=== PATIENT | female | born 1935 | race Caucasian/White ===

== ENCOUNTER → 2016-08-28 | Day surgery (SDC) | payer MEDICARE, BC ==
[~2016-08-28] MED LIST: Bacitracin Oint 1 GM U/D Packet ONE; Bupivacaine 0.5% 50 ML MDV ONE; Diphtheria,Pertussis(Acell),Tetanus Vaccine 0.5 ML SDV IM ONE; Levofloxacin/Dextrose 5%-Water 500 MG in Premix Bag 1 BAG IV ONE; Lidocaine 1% with EPINEPHrine 1:100,000 50 ML MDV ONE; Midazolam 1 MG/ML 2 ML SDV ONE; Morphine 2 MG/ML Syringe ONE; Propofol 200 MG/20 ML SDV ONE; Sodium Chloride 0.9% 1,000 ML IV SCH; fentaNYL 100 MCG/2 ML SDV ONE
[2016-08-28 21:59] VITALS: BP 150/79
--- NOTE | 2016-08-28 22:06 | EDM.PDOC ---
ED HPI GENERAL MEDICAL PROBLEM - General Chief Complaint: Laceration Stated Complaint: CUT LEG ON DOCK Time Seen by Provider: 08/28/16 22:06 Source of Information: Reports: Patient, EMS Notes Reviewed History Limitations: Reports: No Limitations - History of Present Illness INITIAL COMMENTS - FREE TEXT/NARRATIVE: pt was getting off the pontoon tonight and missed stepped and she caught her leg on the dock. She ended up with a 15 cm laceration on the front of the left leg. This was deep into the soft tissue. Onset: Today Duration: Hour(s): Location: Reports: Lower Extremity, Left Associated Symptoms: Reports: No Other Symptoms - Related Data Allergies Allergy/AdvReac Type Severity Reaction Status Date / Time Penicillins Allergy Hives Verified 08/28/16 22:05 Home Meds: Home Meds Aspirin 1 tab PO DAILY 08/28/16 [History] Clopidogrel [Plavix] 1 tab PO DAILY 08/28/16 [History] Famotidine 1 tab PO DAILY 08/28/16 [History] Gabapentin [Neurontin] 1 tab PO BID 08/28/16 [History] atorvaSTATin [Lipitor] 1 tab PO DAILY 08/28/16 [History] metFORMIN [Glucophage] 1 tab PO BID 08/28/16 [History] ED ROS GENERAL - Review of Systems Review Of Systems: See Below Constitutional: Reports: No Symptoms HEENT: Reports: No Symptoms Respiratory: Reports: No Symptoms Cardiovascular: Reports: No Symptoms Endocrine: Reports: No Symptoms GI/Abdominal: Reports: No Symptoms : Reports: No Symptoms Musculoskeletal: Reports: Other ( pt has a 15 cm laceration on the front of the left leg. ) ED EXAM, SKIN/RASH Exam: See Below Text/Narrative:: pt fell getting off the pontoon and ended up with a 15 cm laceration on the front of the left leg. . A xray was obtained which did not reveal a fracture. Exam Limited By: No Limitations General Appearance: Alert, Anxious, Mild Distress Ears: Normal TMs Nose: Normal Inspection Throat/Mouth: Normal Inspection Head: Atraumatic Neck: Normal Inspection Respiratory/Chest: No Respiratory Distress Cardiovascular: Regular Rate, Rhythm GI/Abdominal: Soft, Non-Tender (Female) Exam: Deferred Rectal (Female) Exam: Deferred Back Exam: Normal Inspection Extremities: Other ( Pt has a 15 cm laceration to the front of the mid portion of the lower leg. This is deep into the sub q. ) Neurological: Alert, Oriented, Normal Cognition Course - Vital Signs Last Recorded V/S: Last Vital Signs Temp 34.2 C L 08/28/16 22:15 Pulse 74 08/28/16 22:15 Resp 18 08/28/16 22:15 BP 150/79 H 08/28/16 22:15 Pulse Ox 94 L 08/28/16 22:15 - Orders/Labs/Meds Orders: Active Orders 24 hr Category Date Time Status Vaccines to be Administered [RC] PER UNIT ROUTINE Care 08/28/16 21:53 Active Tibia Fibula Lt [CR] Stat Exams 08/28/16 21:51 Taken Sodium Chloride 0.9% [Normal Saline] 1,000 ml Med 08/28/16 22:15 Active IV ASDIRECTED Medication Orders Sodium Chloride (Normal Saline) 1,000 mls @ 200 mls/hr IV ASDIRECTED CHUCKY Last Admin: 08/28/16 22:23 Dose: 200 mls/hr Labs: Laboratory Tests 08/28/16 08/28/16 Range/Units 22:16 22:16 WBC 15.2 H (4.5-11.0) K/uL RBC 4.45 (3.30-5.50) M/uL Hgb 12.7 (12.0-15.0) g/dL Hct 39.2 (36.0-48.0) % MCV 88 (80-98) fL MCH 29 (27-31) pg MCHC 32 (32-36) % Plt Count 355 (150-400) K/uL Neut % (Auto) 75 H (36-66) % Lymph % (Auto) 14 L (24-44) % Coles % (Auto) 10 H (2-6) % Eos % (Auto) 1 L (2-4) % Baso % (Auto) 0 (0-1) % Sodium 140 (140-148) mmol/L Potassium 3.7 (3.6-5.2) mmol/L Chloride 104 (100-108) mmol/L Carbon Dioxide 27 (21-32) mmol/L Anion Gap 8.7 (5.0-14.0) mmol/L BUN 23 H (7-18) mg/dL Creatinine 1.1 H (0.6-1.0) mg/dL Est Cr Clr Drug Dosing 38.19 mL/min Estimated GFR (MDRD) 48 L (>60) Glucose 180 H (74-106) mg/dL Calcium 8.0 L (8.5-10.1) mg/dL Meds: Medications Generic Name Dose Route Start Last Admin Trade Name Omaira PRN Reason Stop Dose Admin Sodium Chloride 1,000 mls @ 200 mls/hr 08/28/16 22:15 08/28/16 22:23 Normal Saline IV 200 mls/hr ASDIRECTED CHUCKY Administration Discontinued Medications Generic Name Dose Route Start Last Admin Trade Name Omaira PRN Reason Stop Dose Admin Bacitracin Confirm 08/28/16 23:32 Bacitracin Oint 1 Gm Administered 08/28/16 23:33 Dose 3 dose .ROUTE .STK-MED ONE Bupivacaine HCl Confirm 08/28/16 22:59 08/28/16 23:22 Marcaine 0.5% Administered 08/28/16 23:00 20 ml Dose Administration 50 ml .ROUTE .STK-MED ONE Diphtheria/Tetanus/Acell Pertussis 0.5 ml 08/28/16 21:52 08/28/16 22:22 Adacel IM 08/28/16 21:53 0.5 ml .ONCE ONE Administration Fentanyl Confirm 08/28/16 22:57 Sublimaze Administered 08/28/16 22:58 Dose 100 mcg .ROUTE .STK-MED ONE Levofloxacin/Dextrose 500 mg/ 100 mls @ 100 mls/hr 08/28/16 22:04 08/28/16 22 :26 Premix IV 08/28/16 23:03 100 mls/hr ONETIME ONE Administration Lidocaine/Epinephrine Confirm 08/28/16 22:59 08/28/16 23:23 Xylocaine 1% With Epinephrine 1:100,000 Administered 08/28/16 23:00 20 ml Dose Administration 50 ml .ROUTE .STK-MED ONE Midazolam HCl Confirm 08/28/16 22:57 Versed 1 Mg/Ml Administered 08/28/16 22:58 Dose 2 mg .ROUTE .STK-MED ONE Propofol Confirm 08/28/16 22:57 Diprivan 20 Ml Administered 08/28/16 22:58 Dose 200 mg .ROUTE .STK-MED ONE - Re-Assessments/Exams Free Text/Narrative Re-Assessment/Exam: 08/28/16 22:37 xray of the leg showed no fracture. 08/28/16 22:38 Dr Alejandro was consulted and he will take her to the OR for repair. Departure - Departure Time of Disposition: 23:42 Disposition: Admitted As Inpatient 67 Condition: fair Clinical Impression: Laceration of left leg - Discharge Information - My Orders Last 24 Hours: My Active Orders 08/28/16 21:51 Tibia Fibula Lt [CR] Stat 08/28/16 21:53 Vaccines to be Administered [RC] PER UNIT ROUTINE 08/28/16 22:15 Sodium Chloride 0.9% [Normal Saline] 1,000 ml IV ASDIRECTED - Assessment/Plan Last 24 Hours: My Active Orders 08/28/16 21:51 Tibia Fibula Lt [CR] Stat 08/28/16 21:53 Vaccines to be Administered [RC] PER UNIT ROUTINE 08/28/16 22:15 Sodium Chloride 0.9% [Normal Saline] 1,000 ml IV ASDIRECTED
--- NOTE | 2016-08-29 02:57 | CONS ---
DATE OF SERVICE: 08/28/2016 REFERRING PHYSICIAN: CONSULTING PHYSICIAN: Joseph Alejandro MD REASON FOR CONSULTATION: Laceration left leg. HISTORY OF PRESENT ILLNESS: This is an 81-year-old female, who was getting up the pontoon and caught her leg on the dock. The patient has a laceration deep to the bone of her left leg. This is obviously a new problem for her. She has pain, which is 4 to 5/10. PAST MEDICAL HISTORY: The patient states that she is not a diabetic, but she is on metformin. PAST SURGICAL HISTORY: Hysterectomy. REVIEW OF SYSTEMS: GENERAL: She is appropriate for her condition. HEENT: No symptoms. RESPIRATORY: She can walk greater than 2 blocks without trouble breathing. CARDIOVASCULAR: No history of myocardial infarction. ENDOCRINE: No symptoms. GI: No symptoms. GENITOURINARY: No symptoms. MUSCULOSKELETAL: As above. The remainder review of systems is reviewed and is negative. PHYSICAL EXAMINATION: VITAL SIGNS: Temperature erroneously reported at 93.5, blood pressure 170/79, pulse 74, respirations 18, and 94% on room air. HEENT: Pupils are equal. NECK: Supple. LUNGS: Clear. CARDIOVASCULAR: Regular rhythm and rate. ABDOMEN: Bowel sounds positive. EXTREMITIES: Dorsalis pedis pulse noted and a 15-cm laceration full thickness left leg. LABORATORY RESULTS: Show white blood cell count of 15.2. IMAGING: I did review the tib-fib x-ray without the official results, but no gross abnormalities were noted. ASSESSMENT AND PLAN: Laceration, left leg, complex. The patient will be taken to the operating room for repair of this. We discussed risks, benefits, alternatives, and limitations, including, but not limited to infection, bleeding, and requirement for reoperation and other risks not listed here. The patient understands these risks and wishes to proceed. Joseph Alejandro MD /[id number]
--- NOTE | 2016-08-30 07:36 | OR ---
DATE OF PROCEDURE: 08/28/2016 PROCEDURES PERFORMED: 1. Repair of left lower extremity laceration, 15.3 cm, complex (20455). 2. Additional length (43515). 3. Additional length (54104). FINDINGS: 1. Small amount of necrotic tissue consistent with traumatic laceration. 2. Suture ligation of small musculocutaneous blood vessels. COMPLICATIONS: None. 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 ANESTHESIA: MAC/local. INDICATIONS: An 81-year-old female, who fell off a dock onto to a pontoon resulting in a significant laceration of her leg. Risks benefits, alternatives, and limitations, including, but not limited to infection, bleeding, requirement for reoperation, chronic wounds, and other risks that were not explained and the patient wishes to proceed. PROCEDURE IN DETAIL: The patient was placed supine position. The left leg was prepped and draped. A wound exploration was commenced. There were 2 small arterial vessels that were completely transected for a total 4 ends. These were suture ligated using 3-0 Vicryl. The wound was then anesthetized with approximately 40 mL of lidocaine mixed with Marcaine. The debridement of a small amount of ischemic tissue and some foreign material was also performed. These were not sent for pathology. The wound was then closed in 3 layers of 0 Vicryl and 3-0 Vicryl, and the skin was subsequently closed with jia and 3-0 Prolene after thorough repeated irrigation. Dressings were applied. The patient tolerated the procedure well. Joseph Alejandro MD /[id number]
--- NOTE | 2016-08-30 11:49 | CR ---
Advanced medial compartment joint space loss. Hypertrophic change. Foci of air within the anterior s oft tissues of the tibia could reflect injury. Correlate clinically.
== END ==
LOC: JP.ED 21:50 → JP.SDS 22:45
PROVIDERS: ATTEND Surgery
DX: S81.812A Laceration without foreign body, left lower leg, initial encounter (principal); W19.XXXA Unspecified fall, initial encounter; Y93.89 Activity, other specified; Z88.0 Allergy status to penicillin; Z90.710 Acquired absence of both cervix and uterus; Z79.82 Long term (current) use of aspirin; Z79.84 Long term (current) use of oral hypoglycemic drugs; Z79.899 Other long term (current) drug therapy
CPT/HCPCS: 13121; 13122; 36415; 73590; 80048; 85025; 90471; 90715; 96365; 99285; J1956; J2250; J2704; J3010; J7040